=== PATIENT | male | born 1965 | race African-American/Black ===

== ENCOUNTER 2021-07-01 15:42 | Inpatient (IN) | payer MEDICAID ==
[~2021-07-01] VITALS: Ht 177.8 cm; Wt 95.0 kg
[2021-07-01] MEDS ORDERED: NOREPINEPHRINE 8MG/250ML PMX 250 ML IV ONE ×2 (16:00→22:45)
[2021-07-01] MEDS ORDERED: DEXTROSE 50% WATER 50ML SYRINGE IV ONE ×3 (16:10→21:45)
[2021-07-01] MEDS ORDERED: NOREPINEPHRINE 8MG/250ML PMX 250 ML IV STA (16:18)
[2021-07-01] MEDS ORDERED: VANCOMYCIN 1 G PREMIX 200 ML IV ONE (16:30)
[2021-07-01] MEDS ORDERED: PIPERACILLIN/TAZ 3.375G PREMIX 50 ML IV ONE (16:30)
[2021-07-01] MEDS ORDERED: FENTANYL CITRATE/PF 50MCG/ML 2ML VIAL IV ONE (16:30)
[2021-07-01] MEDS ORDERED: SODIUM CHLORIDE 0.9% 1000ML BAG (SEPSIS BOLUS) IV ONE (16:30)
[2021-07-01] MEDS ORDERED: ETOMIDATE 2MG/ML 10ML VIAL IV ONE (16:30)
[2021-07-01] MEDS ORDERED: PROPOFOL 10MG/ML 100ML 100 ML IV ONE (17:00)
[2021-07-01 17:09] LABS: BG BASE EXCESS -20.6 mmol/L (-2.0-2.0); BG DEOXYHEMOGLOBIN 0.3 % (0.0-5.0); BG FRACTION INSPIRED OXYGEN 100; BG HCO3 ACT 8.5 mmol/L (22.0-26.0); BG METHEMOGLOBIN 0.8 % (0.0-1.5); BG OXYGEN SATURATION 99.7 % (92.0-98.5); BG OXYHEMOGLOBIN 97.9 % (94.0-97.0); BG PCO2 33.7 mmHg (35.0-45.0); BG PH 7.022 (7.350-7.450); BG PO2 391.6 mmHg (75.0-100.0); BG SAMPLE SITE RIGHT RADIAL; BG TOTAL HEMOGLOBIN 6.3 g/dL (12.0-18.0); BG VENT MODE VENT - AC
[2021-07-01] MEDS ORDERED: VASOPRESSIN 20 UNIT in SODIUM CHLORIDE 0.9% 99 ML IV STA ×2 (17:26→17:33)
[2021-07-01 17:43] LABS: MEAN CORPUSCULAR HEMOGLOBIN 29.9 pg (28.0-32.0); MEAN CORPUSCULAR VOLUME 105.3 fL (80.0-94.0); MEAN PLATELET VOLUME 9.6 fl (7.4-10.4); PLATELET 119 x1000/uL (130-400); RED BLOOD CELL COUNT 1.95 mill/uL (4.7-6.1); RED CELL DISTRIBUTION WIDTH 20.7 % (11.6-14.6)
[2021-07-01 17:44] LABS: CHLORIDE 103 mEq/L (98-107)
[2021-07-01] MEDS ORDERED: HYDROCORTISONE SOD SUCCINATE 100 MG/2 ML VIAL IV ONE (17:45)
[2021-07-01 17:47] LABS: INR 1.6; PROTHROMBIN TIME 16.8 sec (9.6-11.0)
[2021-07-01 18:00] LABS: HEMOGLOBIN. 5.8 g/dL (14.0-18.0)
[2021-07-01 18:01] LABS: HEMATOCRIT. 20.5 % (42.0-52.0)
[2021-07-01] MEDS ORDERED: DEXT 10% WATER 1,000 ML IV ONE (19:30)
[2021-07-01] MEDS ORDERED: DEXTROSE 10% WATER 500 ML IV ONE (19:45)
[2021-07-01 20:28] LABS: BG BASE EXCESS -20.3 mmol/L (-2.0-2.0); BG CARBOXYHEMOGLOBIN 0.7 % (0.5-1.5); BG FRACTION INSPIRED OXYGEN 100; BG HCO3 ACT 8.3 mmol/L (22.0-26.0); BG METHEMOGLOBIN 0.6 % (0.0-1.5); BG OXYHEMOGLOBIN 98.7 % (94.0-97.0); BG PH 7.062 (7.350-7.450); BG PO2 308.8 mmHg (75.0-100.0); BG SAMPLE SITE RIGHT RADIAL; BG TOTAL HEMOGLOBIN 7.1 g/dL (12.0-18.0); BG VENT MODE VENT - AC
[2021-07-01 20:28] LABS: NUCLEATED RED BLOOD CELLS 37 /100 WBC
[2021-07-01] MEDS ORDERED: IPRATROPIUM/ALBUTEROL 0.5-3(2.5)MG/3ML NEB HHN PRN (20:30)
[2021-07-01] MEDS ORDERED: VANCOMYCIN 1500MG in DEXTROSE 5% WATER 250ML IV NR (20:30)
[2021-07-01] MEDS ORDERED: ACETAMINOPHEN 325MG TABLET PO PRN ×2 (20:30)
[2021-07-01] MEDS ORDERED: ONDANSETRON HCL 4MG/2ML INJ IV PRN (20:30)
[2021-07-01 20:33] LABS: PLATELET ESTIMATE SLIGHTLY DECREASED
[2021-07-01] MEDS ORDERED: DEXTROSE 20% WATER 500 ML IV SCH (20:45)
[2021-07-01] MEDS ORDERED: MEROPENEM 1000MG in NORMAL SALINE 100ML IV SCH (21:45)
[2021-07-01] MEDS ORDERED: CLINDAMYCIN 600MG PREMIX 50 ML IV SCH (22:00)
[2021-07-01] MEDS ORDERED: CLINDAMYCIN 600 MG in DEXTROSE 5% WATER 50 ML IV SCH (23:00)
[2021-07-01] MEDS ORDERED: SODIUM BICARBONATE 5MEQ SYR 150 MEQ in DEXTROSE 5% WATER 1,000 ML IV ONE (23:15)
[2021-07-01 23:51] LABS: MEAN CORPUSCULAR HEMOGLOBIN 30.1 pg (28.0-32.0); MEAN CORPUSCULAR VOLUME 118.5 fL (80.0-94.0); MEAN PLATELET VOLUME 9.3 fl (7.4-10.4); RED CELL DISTRIBUTION WIDTH 22.5 % (11.6-14.6)
[2021-07-02] MEDS ORDERED: SODIUM BICARBONATE 150 MEQ in DEXTROSE 5% WATER 1,000 ML IV SCH
[2021-07-02 00:01] LABS: HEMOGLOBIN. 4.8 g/dL (14.0-18.0)
[2021-07-02 00:02] LABS: PLATELET 48 x1000/uL (130-400)
[2021-07-02 00:09] LABS: CHLORIDE 105 mEq/L (98-107)
[2021-07-02] MEDS ORDERED: NOREPINEPHRINE 8MG/250ML PMX 250 ML IV PRN (00:30)
[2021-07-02] MEDS ORDERED: VASOPRESSIN 20 UNIT in SODIUM CHLORIDE 0.9% 99 ML IV SCH ×2 (02:00→08:00)
[2021-07-02 03:17] LABS: HEPATITIS B SURFACE ANTIGEN REACTIVE PEND CONFIR
[2021-07-02 07:23] VITALS: BP 39/14
[2021-07-02 07:30] LABS: NUCLEATED RED BLOOD CELLS 71 /100 WBC
[2021-07-02 07:31] LABS: PLATELET ESTIMATE DECREASED
[2021-07-02] MEDS ORDERED: VASOPRESSIN 20 UNIT in SODIUM CHLORIDE 0.9% 99 ML IV STA (07:50)
[2021-07-02] MEDS ORDERED: SODIUM BICARBONATE 8.4% 1 MEQ/ML 50ML SYR IV SCH (08:00)
[2021-07-02] MEDS ORDERED: PHENYLEPHRINE 100 MG in DEXT 5% WATER 240 ML IV PRN (08:00)
[2021-07-02] MEDS ORDERED: EPINEPHRINE 0.1MG/ML (1:10,000) 10ML SYR ONE (08:25)
[2021-07-02] MEDS ORDERED: LIDOCAINE HCL 2% 5ML SYRINGE IV ONE (08:25)
[2021-07-02] MEDS ORDERED: AMIODARONE HCL 50MG/ML 3ML VIAL IV ONE (08:25)
[2021-07-02] MEDS ORDERED: CALCIUM CHLORIDE 1GM/10ML SYR IV ONE (08:25)
[2021-07-02] MEDS ORDERED: ATROPINE SULFATE 1MG/10ML SYR ONE (08:25)
[2021-07-02] MEDS ORDERED: DEXTROSE 50% WATER 50ML SYRINGE IV ONE (08:25)
[2021-07-02] MEDS ORDERED: SODIUM BICARBONATE 8.4% 1 MEQ/ML 50ML SYR IV ONE (08:25)
[2021-07-02] MEDS ORDERED: INSULIN LISPRO 100 UNITS/ML SUBCUT ONE (08:37)
[2021-07-02] MEDS ORDERED: DEXT 5% IV SCH (09:00)
[2021-07-02] MEDS ORDERED: AZITHROMYCIN IV SCH (09:00)
[2021-07-02] MEDS ORDERED: SULFAMETHOXAZOLE/TRIMETHOPRIM 200-40 MG/5ML 5ML ORAL SYR PO SCH (09:00)
[2021-07-02] MEDS ORDERED: WATER IV SCH (09:00)
[2021-07-02 16:42] LABS: FOLIC ACID (FOLATE) SERUM >20 ng/mL ng/mL (>5.38)
[2021-07-02 16:53] LABS: VITAMIN B12 SERUM >2000 pg/mL pg/mL (211-911)
== END 2021-07-02 08:33 | DRG 890 ==
LOC: ER 15:42 → MICUSO 18:51 → EDBD 18:51 → EDBEDREQSVC 18:56 → EDBEDREQ 18:56
PROVIDERS: ADMIT Internal Medicine; ATTEND Internal Medicine
PROC: 5A1935Z Respiratory Ventilation, Less than 24 Consecutive Hours (ICD-10-PCS; 2021-07-01)
PROC: 0BH17EZ Insertion of Endotracheal Airway into Trachea, Via Natural or Artificial Opening (ICD-10-PCS; 2021-07-01)
PROC: 02H633Z Insertion of Infusion Device into Right Atrium, Percutaneous Approach (ICD-10-PCS; 2021-07-01)
PROC: B548ZZA Ultrasonography of Superior Vena Cava, Guidance (ICD-10-PCS; 2021-07-01)
PROC: 5A1D70Z Performance of Urinary Filtration, Intermittent, Less than 6 Hours Per Day (ICD-10-PCS; 2021-07-01)
PROC: 5A12012 Performance of Cardiac Output, Single, Manual (ICD-10-PCS; principal; 2021-07-02)
PROC: 30233N1 Transfusion of Nonautologous Red Blood Cells into Peripheral Vein, Percutaneous Approach (ICD-10-PCS; 2021-07-02)
DX: A41.9 Sepsis, unspecified organism (principal); B20 Human immunodeficiency virus [HIV] disease; J96.01 Acute respiratory failure with hypoxia; I46.9 Cardiac arrest, cause unspecified; R65.21 Severe sepsis with septic shock; G93.40 Encephalopathy, unspecified; I12.0 Hypertensive chronic kidney disease with stage 5 chronic kidney disease or end stage renal disease; E87.4 Mixed disorder of acid-base balance; E16.2 Hypoglycemia, unspecified; E78.00 Pure hypercholesterolemia, unspecified; B19.20 Unspecified viral hepatitis C without hepatic coma; N18.6 End stage renal disease; Z99.2 Dependence on renal dialysis
CPT/HCPCS: 36415; 36600; 71045; 73060; 80053; 82375; 82607; 82746; 82805; 82962; 83605; 84145; 84484; 85025; 85044; 86705; 86709; 86803; 86850; 86900; 86920; 87077; 87186; 87340; 93005; 94002; 94003; 99285; J0282; J0461; J1815; J2185; J2370; J2543; J2704; J3370; J3490; J7030; J7050; J7060; J7070; P9016; A4315